=== PATIENT | male | born 1960 | race Caucasian/White ===

== ENCOUNTER 2017-10-11 07:58 | Outpatient (CLI) | payer BC ==
--- NOTE | 2017-10-11 11:53 | MRI ---
MRI BRAIN WITH AND WITHOUT CONTRAST: Date: 10/11/17 HISTORY: Vertigo. Lightheadedness. COMPARISON: None. TECHNIQUE: Brain MRI is performed with and without intravenous Gadolinium administration. Multisequential, multi planar imaging is performed. FINDINGS: No hemorrhage on the axial gradient echo sequence. Calvarium has a normal marrow signal intensity. Midline brain parenchymal structures are unremarkable . No parenchymal mass, mass effect, or midline shift. Age-appropriate brain volume. Cortical diaz-white matter differentiation is preserved. Ventricles and sulci are patent and symmetric. Minimal white matter hyperintensities on the axial T2 and FLAIR sequence. Central arterial flow-voids are maintained. Absent restricted diffusion. No pathologic enhancement of the brain parenchyma. MRI INTERNAL AUDITORY CANALS: There is symmetric signal intensity of the internal auditory canals. No abnormal enhancement of the 7 th/8th cranial nerve complexes. No abnormal enhancement in either 5th cranial nerve complex. No abnor mal enhancement or signal intensity of the inner ear structures. IMPRESSION: 1. Absent restricted diffusion. No acute infarct. 2. No pathologic enhancement of the brain parenchyma. 3. No abnormal enhancement of the internal auditory canals, 7th/8th cranial nerves, as well as the i nner ear structures. POS: [facility]
== END 2017-10-11 07:59 | disposition home or self-care (01) ==
LOC: SCSMRI 07:58
PROVIDERS: ATTEND Psychiatry & Neurology Neurology
DX: R42 Dizziness and giddiness (principal)
CPT/HCPCS: 70553

== ENCOUNTER 2018-09-23 09:41 | Outpatient (CLI) | payer BC ==
--- NOTE | 2018-09-23 10:06 | ULT ---
US Renal Bilateral STANDARD History: Elevated creatinine Comparison: None. Findings: Real-time grayscale and color evaluation of the kidneys and urinary bladder was performed. Right kidney measures 9.6 x 6.1 x 6 cm and the left kidney measures 10.3 x 6.1 x 5.5 cm. Prevoid urin noel bladder volume is 97 mL. No renal mass, hydronephrosis, or abnormal calcifications. Impression: No evidence for obstructive uropathy.
== END 2018-09-23 09:42 | disposition home or self-care (01) ==
LOC: SCSULT 09:41
PROVIDERS: ATTEND Family Medicine
DX: R74.8 Abnormal levels of other serum enzymes (principal)
CPT/HCPCS: 76770